=== PATIENT | male | born 2000 | race African-American/Black ===

== ENCOUNTER 2020-11-15 22:42 | Inpatient (IN) ==
[2020-11-16] MEDS ORDERED: *HR* LORazepam 1 MG TABLET PO PRN (03:15)
[2020-11-16] MEDS ORDERED: Haloperidol Lactate 5 MG/ML VIAL IM PRN (03:15)
[2020-11-16] MEDS ORDERED: *HR* LORazepam 2 MG/ML VIAL IM PRN (03:15)
[2020-11-16] MEDS ORDERED: haloperidoL 5 MG TABLET PO PRN (03:15)
[2020-11-16] MEDS ORDERED: traZODone 50 MG TABLET PO PRN (03:15)
[2020-11-16] MEDS ORDERED: hydrOXYzine pamoate 25 MG CAPSULE PO PRN (03:15)
[2020-11-16] MEDS ORDERED: Acetaminophen 325 MG TABLET PO PRN (03:15)
[2020-11-16] MEDS ORDERED: MOM Conc 10 ML UD.LIQ PO PRN (12:15)
[2020-11-16] MEDS ORDERED: Mag Hydrox/Al Hydrox/Simeth 30 ML UDC PO PRN (12:15)
[2020-11-16] MEDS ORDERED: Melatonin 3 MG TABLET PO SCH (21:00)
[2020-11-17 09:39] VITALS: BP 115/78
== END 2020-11-17 14:30 | disposition home or self-care (01) | DRG 885 ==
LOC: EMEROOARM 22:42 → 1ANU 11-16 03:01
PROVIDERS: ADMIT Psychiatry & Neurology Psychiatry; ATTEND Psychiatry & Neurology Psychiatry